=== PATIENT | male | born 1965 | race Caucasian/White ===

== ENCOUNTER 2023-02-01 15:01 | Emergency (ER) | payer OTHER ==
[~2023-02-01] VITALS: Ht 177.8 cm; Wt 118.2 kg
[2023-02-01] MEDS ORDERED: ketorolac trometh inj. 60 MG/2 ML VIAL IM ONE (16:20)
[2023-02-01] MEDS ORDERED: NAPR-56 PO (16:28)
[2023-02-01] MEDS ORDERED: CYCL-1 PO (16:28)
[2023-02-01 16:39] VITALS: BP 130/87; PULSE 71; TEMP 97.8; O2SAT 96
[2023-02-01 17:30] VITALS: RESP 18
--- NOTE | 2023-02-02 12:43 | NUR ---
PT. DOCUMENTATION COMPLETED BY PIE CHEF HAS BEEN REVIEWED AND CONCUR WITH PIE CHEF.
== END 2023-02-02 06:52 | disposition home or self-care (01) ==
LOC: ER 15:02
DX: S16.1XXA Strain of muscle, fascia and tendon at neck level, initial encounter (principal); S20.219A Contusion of unspecified front wall of thorax, initial encounter; V89.2XXA Person injured in unspecified motor-vehicle accident, traffic, initial encounter; Y93.89 Activity, other specified; Y92.89 Other specified places as the place of occurrence of the external cause; Y99.8 Other external cause status
CPT/HCPCS: 71100; 96372; 99283; J1885